=== PATIENT | male | born 1970 | race Caucasian/White ===

== ENCOUNTER 2020-12-07 09:20 | Emergency (ER) | payer OTHER ==
--- NOTE | 2020-12-07 10:49 | EDM.PDOC ---
ED HPI GENERAL MEDICAL PROBLEM - General Chief Complaint: Respiratory Problem Stated Complaint: COVID + SX GETTING WORSE Time Seen by Provider: 12/07/20 10:39 - History of Present Illness INITIAL COMMENTS - FREE TEXT/NARRATIVE: 50-year-old male presents to the emergency room with increasing shortness of breath he is known to be Covid positive. Patient was diagnosed with Covid a few days ago. He received Regeneron 2 days ago. Patient believes he still getting worse. He is having difficulty breathing. This seems to do okay as long as he is staying still. His O2 saturation is right around 90%. And he just feels awful at this point. The patient is on hydroxychloroquine for reactive arthritis. - Related Data Allergies Allergy/AdvReac Type Severity Reaction Status Date / Time penicillin V Allergy Cannot Verified 12/07/20 09:44 Remember Home Meds: Home Meds Hydroxychloroquine Sulfate 200 mg PO DAILY 12/07/20 [History] Lisinopril/Hydrochlorothiazide [Zestoretic 20-12.5 mg Tablet] 1 each PO DAILY 12/07/20 [History] amLODIPine Besylate [Amlodipine Besylate] 10 mg PO DAILY 12/07/20 [History] sulfaSALAzine 500 mg PO DAILY 12/07/20 [History] Past Medical History Cardiovascular History: Reports: Hypertension Gastrointestinal History: Reports: GERD Musculoskeletal History: Reports: Other (See Below) Other Musculoskeletal History: reactive arthritis - Infectious Disease History Infectious Disease History: Reports: Novel Coronavirus - Past Surgical History Musculoskeletal Surgical History: Reports: Other (See Below) Other Musculoskeletal Surgeries/Procedures:: right hip resurfacing Social & Family History - Tobacco Use Tobacco Use Status *Q: Never Tobacco User Second Hand Smoke Exposure: No - Recreational Drug Use Recreational Drug Use: No ED ROS GENERAL - Review of Systems Review Of Systems: See Below Constitutional: Reports: Malaise, Weakness, Fatigue HEENT: Reports: Rhinitis Respiratory: Reports: Shortness of Breath, Cough Cardiovascular: Reports: No Symptoms GI/Abdominal: Reports: No Symptoms : Reports: No Symptoms Musculoskeletal: Reports: No Symptoms ED EXAM, GENERAL - Physical Exam Exam: See Below Exam Limited By: No Limitations General Appearance: Alert, No Apparent Distress, Other (O2 saturation with him sitting up is 88 to 90%) Head: Atraumatic, Normocephalic Neck: Normal Inspection, Supple, Non-Tender, Full Range of Motion. No: Lymphadenopathy (L), Lymphadenopathy (R) Respiratory/Chest: Crackles (Crackles both lung bases mild) Cardiovascular: Regular Rate, Rhythm, No Edema, No Murmur GI/Abdominal: Normal Bowel Sounds, Soft, Non-Tender Back Exam: Normal Inspection. No: CVA Tenderness (L), CVA Tenderness (R) #1 Interpretation EKG Date: 12/07/20 Rhythm: Other (Sinus tachycardia) Rate (Beats/Min): 105 [place]: Normal (Borderline left) P-Wave: Present QRS: Other (Q waves leads III and aVF) ST-T: Normal QT: Normal Comparison: NA - No Prior EKG EKG Interpretation Comments: Abnormal EKG Course - Vital Signs Last Recorded V/S: Last Vital Signs Temp 37.1 C 12/07/20 09:41 Pulse 106 H 12/07/20 09:41 Resp 23 H 12/07/20 09:41 BP 139/89 12/07/20 09:41 Pulse Ox 86 L 12/07/20 09:41 - Orders/Labs/Meds Orders: Active Orders 24 hr Category Date Time Status EKG 12 Lead [EK] Stat Ther 12/07/20 10:03 Ordered Labs: Laboratory Tests 12/07/20 12/07/20 12/07/20 Range/Units 11:08 11:08 11:08 WBC 7.84 (4.23-9.07) K/mm3 RBC 4.38 L (4.63-6.08) M/mm3 Hgb 14.4 (13.7-17.5) gm/dl Hct 40.6 (40.1-51.0) % MCV 92.7 H (79.0-92.2) fl MCH 32.9 H (25.7-32.2) pg MCHC 35.5 (32.2-35.5) g/dl RDW Std Deviation 45.2 H (35.1-43.9) fL Plt Count 236 (163-337) K/mm3 MPV 10.1 (9.4-12.3) fl Neutrophils % (Manual) 73 H (40-60) % Band Neutrophils % 0 (0-10) % Lymphocytes % (Manual) 15 L (20-40) % Atypical Lymphs % 0 % Monocytes % (Manual) 12 H (2-10) % Eosinophils % (Manual) 0 L (0.8-7.0) % Basophils % (Manual) 0 L (0.2-1.2) Platelet Estimate Adequate RBC Morph Comment Normal D-Dimer, Quantitative 0.76 H (0.19-0.50) mg/L Sodium 130 L (136-145) mEq/L Potassium 4.0 (3.5-5.1) mEq/L Chloride 94 L (98-107) mEq/L Carbon Dioxide 26 (21-32) mEq/L Anion Gap 14.0 (5-15) BUN 32 H (7-18) mg/dL Creatinine 1.2 (0.7-1.3) mg/dL Est Cr Clr Drug Dosing TNP Estimated GFR (MDRD) > 60 (>60) mL/min BUN/Creatinine Ratio 26.7 H (14-18) Glucose 106 H (70-99) mg/dL Calcium 8.8 (8.5-10.1) mg/dL Ferritin (26-388) ng/ml Total Bilirubin 0.6 (0.2-1.0) mg/dL AST 48 H (15-37) U/L ALT 36 (16-63) U/L Alkaline Phosphatase 69 (46-116) U/L Lactate Dehydrogenase 421 H (85-227) U/L Troponin I < 0.017 (0.00-0.056) ng/mL C-Reactive Protein 9.9 H* (<1.0) mg/dL Total Protein 7.7 (6.4-8.2) g/dl Albumin 3.3 L (3.4-5.0) g/dl Globulin 4.4 gm/dL Albumin/Globulin Ratio 0.8 L (1-2) 12/07/20 Range/Units 11:08 WBC (4.23-9.07) K/mm3 RBC (4.63-6.08) M/mm3 Hgb (13.7-17.5) gm/dl Hct (40.1-51.0) % MCV (79.0-92.2) fl MCH (25.7-32.2) pg MCHC (32.2-35.5) g/dl RDW Std Deviation (35.1-43.9) fL Plt Count (163-337) K/mm3 MPV (9.4-12.3) fl Neutrophils % (Manual) (40-60) % Band Neutrophils % (0-10) % Lymphocytes % (Manual) (20-40) % Atypical Lymphs % % Monocytes % (Manual) (2-10) % Eosinophils % (Manual) (0.8-7.0) % Basophils % (Manual) (0.2-1.2) Platelet Estimate RBC Morph Comment D-Dimer, Quantitative (0.19-0.50) mg/L Sodium (136-145) mEq/L Potassium (3.5-5.1) mEq/L Chloride (98-107) mEq/L Carbon Dioxide (21-32) mEq/L Anion Gap (5-15) BUN (7-18) mg/dL Creatinine (0.7-1.3) mg/dL Est Cr Clr Drug Dosing Estimated GFR (MDRD) (>60) mL/min BUN/Creatinine Ratio (14-18) Glucose (70-99) mg/dL Calcium (8.5-10.1) mg/dL Ferritin 2109 H (26-388) ng/ml Total Bilirubin (0.2-1.0) mg/dL AST (15-37) U/L ALT (16-63) U/L Alkaline Phosphatase (46-116) U/L Lactate Dehydrogenase (85-227) U/L Troponin I (0.00-0.056) ng/mL C-Reactive Protein (<1.0) mg/dL Total Protein (6.4-8.2) g/dl Albumin (3.4-5.0) g/dl Globulin gm/dL Albumin/Globulin Ratio (1-2) - Re-Assessments/Exams Free Text/Narrative Re-Assessment/Exam: 12/07/20 13:35 Labs checked D-dimer slightly elevated as the ferritin and LDH are also elevated C-reactive protein is elevated. Chest x-ray shows basilar at the lower perihilar region areas consistent with an infiltrate that looks viral in origin. Patient was placed in the prone position his O2 saturation improved significantly to 93% the patient feels better in this position. At this point will discharge the patient Departure - Departure Time of Disposition: 13:36 Disposition: Home, Self-Care 01 Clinical Impression: Pneumonia due to COVID-19 virus - Discharge Information Instructions: COVID-19, Community-Acquired Pneumonia, Adult Referrals: Imtiaz Crystal PA-C [Primary Care Provider] - Forms: ED Department Discharge Additional Instructions: Return to the emergency room with any questions problems or worsening symptoms. Self-isolation from 12 days from the onset of symptoms or as directed by the health department. Stay in the prone position, lying on your stomach, as much as you can tolerate it you breathe much better in this position. Sepsis Event Note (ED) - Evaluation Sepsis Screening Result: Possible Sepsis Risk - Focused Exam Vital Signs: Vital Signs Temp Pulse Resp BP Pulse Ox 12/07/20 09:41 37.1 C 106 H 23 H 139/89 86 L - My Orders Last 24 Hours: My Active Orders 12/07/20 10:03 EKG 12 Lead [EK] Stat - Assessment/Plan Last 24 Hours: My Active Orders 12/07/20 10:03 EKG 12 Lead [EK] Stat
--- NOTE | 2020-12-07 16:18 | CR ---
Chest: Frontal view of the chest was obtained. Comparison: Prior chest x-ray of 12/05/20. Increasing density is seen within the right perihilar region and left mid and lower lung from prior chest x-ray. Findings are suspicious for worsening COVID pneumonia. Please correlate. Heart size and mediastinum are normal. Bony structure shows nothing acute. Impression: 1. Worsening increased density within both sides of the chest suspicious for worsening COVID pneumonia. Please correlate. Findings otherwise represent worsening non-COVID pneumonia. 2. No additional abnormality is identified. Diagnostic code #3
== END 2020-12-07 13:50 | disposition home or self-care (01) ==
LOC: JD.ED 09:20
DX: U07.1 COVID-19 (principal); J12.82 Pneumonia due to coronavirus disease 2019; I10 Essential (primary) hypertension; K21.9 Gastro-esophageal reflux disease without esophagitis; Z86.16 Personal history of COVID-19; Z88.0 Allergy status to penicillin
CPT/HCPCS: 36415; 71045; 71045-26; 80053; 82728; 83615; 84484; 85007; 85027; 85379; 86140; 93005; 93010; 99284; 99285-25